=== PATIENT | male | born 1980 | race Caucasian/White ===

== ENCOUNTER 2017-09-01 23:46 | Emergency (ER) | payer OTHER ==
[~2017-09-01] VITALS: Ht 188 cm; Wt 88.5 kg
--- NOTE | 2017-09-02 00:16 | ER Report ---
History and Physical Time Seen By MD: 00:16 Hx. of Stated Complaint: patient states that yesterday he had the chills; today he has had vomiting and diarrhea that started today; states he has a head ache HPI/ROS CHIEF COMPLAINT: chills, vomiting, cough HISTORY OF PRESENT ILLNESS: This is a 37 year old male. He has cough that started today. He had some chills yesterday. He has some dizziness and vomiting tonight. Also some diarrhea tonight. 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 Sick contacts from the many students sick at school. No abdominal pain. No chest pain. Has some aches and pains. He has a headache. Allergies: Coded Allergies: No Known Drug Allergies (Unverified , 09/01/17) Home Meds Active Scripts Guaifenesin/Codeine (GUAIFENESIN-CODEINE SYRUP) 5 Ml Syrp, 5 ML PO Q6H Y for COUGH, #120 ML 0 Refills Prov:AUREA FRY MD 09/02/17 Reviewed Nurses Notes: Yes Hx Alcohol Use: Yes (occ.) Constitutional Vital Sign - Last 24 Hours 09/01/17 09/01/17 09/02/17 09/02/17 23:50 23:53 00:00 00:16 Temp 100.1 Pulse 63 64 Resp 18 B/P (MAP) 141/94 (110) 141/94 150/88 (108) Pulse Ox 97 97 O2 Delivery Room Air 09/02/17 09/02/17 09/02/17 09/02/17 00:46 01:00 01:30 01:40 Temp 99.1 Pulse 59 88 Resp 16 B/P (MAP) 130/79 (96) 133/74 (93) 136/83 (100) 132/88 (103) Pulse Ox 98 92 O2 Delivery Room Air Physical Exam General Appearance: The patient is alert. No acute distress. Eyes: Pupils are equal, round. No pallor, injection or icterus. ENT: Mucous membranes are moist. Normal oral mucosa. Posterior oropharynx with significant post nasal drainage and erythema. Nasal mucosa with mucous and erythema. Normal tympanic membranes and canals although he has bilateral effusions. Neck: Supple and non tender. No lymphadenopathy. Respiratory: Breathing easily and unlabored. Lungs are clear to auscultation. Cardiovascular: Regular rate and rhythm. No murmurs, gallops or rubs. Normal capillary refill. Gastrointestinal: Abdomen is soft and non tender. Nondistended. No masses or organomegaly. Normal active bowel sounds. No costovertebral angle tenderness with percussion. Neurological: Alert and oriented x3. Skin: Warm and dry. No rashes. DIFFERENTIAL DIAGNOSIS: After history and physical exam, differential diagnosis was considered for cough, nausea/vomiting, diarrhea, likely from viral syndrome/ infection. Medical Decision Making Data Points Result Diagram: 09/02/17 0015 09/02/17 0015 Laboratory Hematology Test 09/02/17 00:07 09/02/17 00:15 Influenza Virus Type A (PCR) Negative (NEGATIVE) Influenza Virus Type B (PCR) Negative (NEGATIVE) Red Blood Count 5.63 M/uL (4.00-5.60) Mean Corpuscular Volume 88.9 fL (80.0-96.0) Mean Corpuscular Hemoglobin 30.3 pg (26.0-33.0) Mean Corpuscular Hemoglobin Concent 34.2 g/dL (32.0-36.0) Red Cell Distribution Width 12.9 % (11.5-14.5) Mean Platelet Volume 9.2 fL (7.2-11.1) Neutrophils (%) (Auto) 87.1 % (39.4-72.5) Lymphocytes (%) (Auto) 4.9 % (17.6-49.6) Monocytes (%) (Auto) 6.2 % (4.1-12.4) Eosinophils (%) (Auto) 1.5 % (0.4-6.7) Basophils (%) (Auto) 0.3 % (0.3-1.4) Nucleated RBC Relative Count (auto) 0.1 /100WBC Neutrophils # (Auto) 10.8 K/uL (2.0-7.4) Lymphocytes # (Auto) 0.6 K/uL (1.3-3.6) Monocytes # (Auto) 0.8 K/uL (0.3-1.0) Eosinophils # (Auto) 0.2 K/uL (0.0-0.5) Basophils # (Auto) 0.0 K/uL (0.0-0.1) Nucleated RBC Absolute Count (auto) 0.01 K/uL Sodium Level 141 mmol/L (137-145) Potassium Level 4.4 mmol/L (3.5-5.0) Chloride Level 104 mmol/L (98-107) Carbon Dioxide Level 26 mmol/L (22-30) Blood Urea Nitrogen 17 mg/dl (9-21) Creatinine 1.10 mg/dl (0.66-1.25) Glomerular Filtration Rate Calc > 60.0 Random Glucose 106 mg/dl (75-110) Calcium Level 9.5 mg/dl (8.4-10.2) Total Bilirubin 2.3 mg/dl (0.2-1.3) Aspartate Amino Transf (AST/SGOT) 248 U/L (0-35) Alanine Aminotransferase (ALT/SGPT) 377 U/L (0-56) Alkaline Phosphatase 166 U/L (0-126) Total Protein 8.0 gm/dl (6.3-8.2) Albumin 4.3 g/dl (3.5-5.0) Chemistry Test 09/02/17 00:07 09/02/17 00:15 Influenza Virus Type A (PCR) Negative (NEGATIVE) Influenza Virus Type B (PCR) Negative (NEGATIVE) White Blood Count 12.4 k/uL (4.5-11.0) Red Blood Count 5.63 M/uL (4.00-5.60) Hemoglobin 17.1 g/dL (14.0-18.0) Hematocrit 50.1 % (42.0-52.0) Mean Corpuscular Volume 88.9 fL (80.0-96.0) Mean Corpuscular Hemoglobin 30.3 pg (26.0-33.0) Mean Corpuscular Hemoglobin Concent 34.2 g/dL (32.0-36.0) Red Cell Distribution Width 12.9 % (11.5-14.5) Platelet Count 185 K/uL (150-450) Mean Platelet Volume 9.2 fL (7.2-11.1) Neutrophils (%) (Auto) 87.1 % (39.4-72.5) Lymphocytes (%) (Auto) 4.9 % (17.6-49.6) Monocytes (%) (Auto) 6.2 % (4.1-12.4) Eosinophils (%) (Auto) 1.5 % (0.4-6.7) Basophils (%) (Auto) 0.3 % (0.3-1.4) Nucleated RBC Relative Count (auto) 0.1 /100WBC Neutrophils # (Auto) 10.8 K/uL (2.0-7.4) Lymphocytes # (Auto) 0.6 K/uL (1.3-3.6) Monocytes # (Auto) 0.8 K/uL (0.3-1.0) Eosinophils # (Auto) 0.2 K/uL (0.0-0.5) Basophils # (Auto) 0.0 K/uL (0.0-0.1) Nucleated RBC Absolute Count (auto) 0.01 K/uL Glomerular Filtration Rate Calc > 60.0 Calcium Level 9.5 mg/dl (8.4-10.2) Total Bilirubin 2.3 mg/dl (0.2-1.3) Aspartate Amino Transf (AST/SGOT) 248 U/L (0-35) Alanine Aminotransferase (ALT/SGPT) 377 U/L (0-56) Alkaline Phosphatase 166 U/L (0-126) Total Protein 8.0 gm/dl (6.3-8.2) Albumin 4.3 g/dl (3.5-5.0) EKG/Imaging Imaging CHEST: Indication: Cough. Technique: Frontal and lateral views were obtained. Comparison: None. Skeletal and soft tissue structures: Intact and unremarkable. Heart and mediastinum: Within normal limits. Lung mathur: Well-expanded and clear. No focal opacities. Pleural spaces: Unremarkable. Impression: No acute process. Report Dictated By: Avtar Hopson MD at 09/02/2017 12:39 AM ED Course/Re-evaluation Clinical Indication for ER IV: IV Access ED Course Labs show elevation of his liver function tests. I reviewed this with him, and he has had elevation of these on [facility] in the past, but no further workup. This could be and acute phase reactant, as a result of viral syndrome. Offered to do further workup with ultrasound imaging of the gallbladder and liver, but he will defer. This is not critical at this time as he has no abdominal pain or hepatomegaly, but did recommend follow-up with primary care for further evaluation and follow-up. Influenza negative. Imaging negative as noted. Discussed conservative treatment of viral syndrome. Decision to Disposition Date: Sep 02, 2017 Decision to Disposition Time: 01:32 Depart Departure Latest Vital Signs Vital Signs Date Time Temp Pulse Resp B/P (MAP) Pulse Ox O2 Delivery O2 Flow Rate FiO2 09/02/17 01:40 99.1 88 16 132/88 (103) 92 Room Air Impression: Primary Impression: Acute viral syndrome Condition: Improved Disposition: HOME OR SELF-CARE New Scripts Guaifenesin/Codeine (GUAIFENESIN-CODEINE SYRUP) 5 Ml Syrp 5 ML PO Q6H Y for COUGH, #120 ML 0 Refills Prov: AUREA FRY MD 09/02/17 Patient Instructions: Viral Syndrome (ED) Additional Instructions: Rest and increase fluid intake. Take Guaifenesin with Codeine, 1 teaspoon every 4 hours as needed for severe cough. Take Ibuprofen for pain. You liver tests were elevated, which could be due to the viral infection causing your symptoms. Make sure to follow-up with your regular doctor for re-evaluation of this. If you start having pains in the right upper abdomen or right back, please see your doctor or return here for re-evaluation of the liver and gallbladder. AUREA FRY MD Sep 02, 2017 00:16
[2017-09-02] MEDS ORDERED: ONDANSETRON 4 MG/2 ML VIAL IVP ONE (00:20)
[2017-09-02] MEDS ORDERED: KETOROLAC 30 MG/ML VIAL IVP ONE (00:20)
[2017-09-02] MEDS ORDERED: NS(*) 0.9% 1000 ML BAG 1,000 ML IV ONE (00:20)
[2017-09-02 00:28] LABS: PLATELET COUNT, AUTOMATED 185 K/uL (150-450)
--- NOTE | 2017-09-02 00:45 | RADIOLOGY IMAGING REPORT ---
FACILITY: [facility] - [place] PATIENT NAME: Ryan Jean : 1980 MR: [id number] V: [id number] EXAM DATE: ORDERING PHYSICIAN: AUREA FRY TECHNOLOGIST: Location: [facility] Patient: Ryan eJan : 1980 Visit/Account:[id number] Date of Sevice: 09/02/2017 CHEST: Indication: Cough. Technique: Frontal and lateral views were obtained. Comparison: None. Skeletal and soft tissue structures: Intact and unremarkable. Heart and mediastinum: Within normal limits. Lung mathur: Well-expanded and clear. No focal opacities. Pleural spaces: Unremarkable. Impression: No acute process. Report Dictated By: Avtar Hopson MD at 09/02/2017 12:39 AM Report E-Signed By: Avtar Hopson MD at 09/02/2017 12:40 AM WSN:[id number]
[2017-09-02] MEDS ORDERED: ROBC PO (01:34)
[2017-09-02 01:40] VITALS: BP 132/88
[2017-09-02] MEDS ORDERED: guaiFENesin/CODEINE 5 ML UDBTL PO ONE (01:40)
== END 2017-09-02 01:43 | disposition home or self-care (01) ==
LOC: ER 23:50
DX: B34.9 Viral infection, unspecified (principal)
CPT/HCPCS: 71046; 85025; 87502; 96374; 96375; 99284; J1885; J2405; J7030; 82040; 82247; 82310; 82374; 82435; 82565; 82947; 84075; 84132; 84155; 84295; 84450; 84460; 84520